=== PATIENT | female | born 1965 | race Caucasian/White ===

== ENCOUNTER → 2016-10-28 | Outpatient (CLI) | payer OTHER | LOC: FIMAGING 09:59 | PROVIDERS: ATTEND Internal Medicine | DX: Z12.31 Encounter for screening mammogram for malignant neoplasm of breast (principal) | CPT/HCPCS: G0202 ==

== ENCOUNTER → 2017-11-01 | Outpatient (CLI) | payer OTHER | LOC: FIMAGING 08:20 | PROVIDERS: ATTEND Internal Medicine | DX: Z12.31 Encounter for screening mammogram for malignant neoplasm of breast (principal) ==

== ENCOUNTER 2018-03-09 11:00 | Observation (INO) | payer OTHER ==
--- NOTE | 2018-03-09 10:46 | PDANEPAE ---
ANE History of Present Illness SVT ablation ANE Past Medical History - Cardiovascular History Hx Arrhythmias: Yes ANE Review of Systems Review of systems is: negative Review of Systems: - Exercise capacity Exercise capacity: >=4 METS ANE Patient History - Allergies Allergies/Adverse Reactions: No Known Allergies Allergy (Unverified 08/11/12 08:40) - Home Medications Home medications: home medication list seen and reviewed Home Medications: MAGNESIUM [Magnesium Oxide 200 mg] 500 mg PO HS 08/11/12 [Last Taken Unknown] Calcium Carbonate [Oyster Shell Calcium 500 mg (*)] 500 mg PO HS 03/04/18 [Last Taken Unknown] Cholecalciferol Vit D3 [Vitamin D3 (*)] 5,000 units PO DAILY 03/04/18 [Last Taken Unknown] Herbals/Supplements -Info Only 1 ea PO DAILY 03/04/18 [Last Taken Unknown] Ibuprofen [Motrin (*)] 400 mg PO DAILY PRN 03/04/18 [Last Taken Unknown] Multivitamins [Multivitamin (*)] 1 each PO DAILY 03/04/18 [Last Taken Unknown] buPROPion XL [Wellbutrin Xl] 150 mg PO DAILY 03/04/18 [Last Taken Unknown] - NPO status NPO Status: no food or drink >8 hours - Anes Hx Anes Hx: post operative nausea - Smoking Hx Smoking Status: Former smoker - Family Anes Hx Family Anes Hx: none ANE Labs/Vital Signs - Labs Result Diagrams: 03/09/18 11:23 03/09/18 11:23 - Vital Signs Vital Signs: reviewed preoperatively; see RN documention for details ANE Physical Exam - Airway Neck exam: FROM Mallampati Score: Class 2 Mouth exam: normal dental/mouth exam - Pulmonary Pulmonary: no respiratory distress - Cardiovascular Cardiovascular: regular rate and rhythym - ASA Status ASA Status: II ANE Anesthesia Plan Anesthesia Plan: general endotracheal anesthesia
[2018-03-09] MEDS ORDERED: NS 1,000 ML IV ONE (11:16)
[2018-03-09 11:42] LABS: PLATELET COUNT 340 10^3/uL (150-400)
[2018-03-09 11:53] LABS: INR 1.02 (0.83-1.16); PROTIME(PATIENT) 13.6 SEC (12.0-15.0)
--- NOTE | 2018-03-09 11:53 | PDGENHP ---
History & Physical Chief Complaint: svt Relevant Physical Exam: s1s2 rrr cta ao3 Cardiorespiratory Assessment: for eps possible ablation
[2018-03-09] MEDS ORDERED: ISOPROTERENOL HCL/D5W 0.2 MG/50 ML BAG IV ONE (12:02)
[2018-03-09] MEDS ORDERED: BUPIVACAINE 0.75% 10 ML SDV ONE (12:02)
[2018-03-09] MEDS ORDERED: LIDOCAINE 1% 300 MG/30 ML SDV ONE (12:02)
[2018-03-09] MEDS ORDERED: HEPARIN 10,000 UNIT/10 ML MDV (1,000 UNIT/ML) ONE (12:02)
[2018-03-09] MEDS ORDERED: fentaNYL 100 MCG/2 ML INJ ONE (12:23)
[2018-03-09] MEDS ORDERED: DEXAMETHASONE 4 MG/ML VIAL ONE (12:23)
[2018-03-09] MEDS ORDERED: LIDOCAINE 2% 100 MG/5 ML SYR ONE (12:23)
[2018-03-09] MEDS ORDERED: ONDANSETRON 4 MG/2 ML VIAL ONE (12:23)
[2018-03-09] MEDS ORDERED: PROPOFOL 200 MG/20 ML VIAL ONE ×2 (12:23→12:58)
[2018-03-09] MEDS ORDERED: MIDAZOLAM 2 MG/2 ML VIAL ONE (12:24)
[2018-03-09] MEDS ORDERED: ROCURONIUM 50 MG/5 ML VIAL ONE ×2 (12:25→13:30)
[2018-03-09] MEDS ORDERED: ONDANSETRON 4 MG/2 ML VIAL IVP PRN (14:02)
[2018-03-09] MEDS ORDERED: DEXAMETHASONE 4 MG/ML VIAL IVP PRN (14:02)
[2018-03-09] MEDS ORDERED: HYDROCODONE/APAP 5/325 TAB PO PRN ×2 (14:02→16:46)
[2018-03-09] MEDS ORDERED: oxyCODONE IR 5 MG TAB PO PRN (14:02)
[2018-03-09] MEDS ORDERED: MEPERIDINE 25 MG/0.5 ML AMP IVP PRN (14:02)
[2018-03-09] MEDS ORDERED: PROMETHAZINE HCL 25 MG/ML INJ IVP PRN (14:02)
[2018-03-09] MEDS ORDERED: NALOXONE HCL 0.4 MG/ML INJ IVP PRN (14:02)
[2018-03-09] MEDS ORDERED: fentaNYL 100 MCG/2 ML INJ IVP PRN (14:02)
--- NOTE | 2018-03-09 14:03 | POSTANESTH ---
Post Anesthetic Evaluation Cardiovascular Status: Normal, Stable Respiratory Status: Normal, Stable, Similar to Pre-op Cond. Level of Consciousness/Mental Status: Can Participate in Eval, Mildly Sleepy, Arousable Pain Control: Adequate, Prn Tx Ordered Nausea/Vomiting Control: Adequate, Prn Tx Ordered Complications Possibly Related to Anesthesia: None Noted
[2018-03-09] MEDS ORDERED: SUGAMMADEX SODIUM 200 MG/2 ML VIAL IVP ONE (14:37)
--- NOTE | 2018-03-09 15:16 | EPPROC ---
Electrophysiology Procedure Note: ELECTROPHYSIOLOGIC STUDY AND CATHETER MEDIATED ABLATION OF SLOW/SLOW ( atypical )AV ROYAL REENTRY TACHYCARDIA PROCEDURES PERFORMED: 67306-54 EP evaluation with RA/RV/LA pace/record, with arrhythmia induction 40864-38 EP evaluation with RA/RV pace record, insert/reposition catheter, with arrhythmia induction 63138 Intracardiac catheter ablation, SVT arrhythmogenic focus 19630 3D mapping Fluoroscopy PROCEDURE: Catheters & Anesthesia: The patient arrived in the Electrophysiology Laboratory in the fasting state. The right clavicular region, right groin, and left groin area were prepped and draped in the usual sterile manner. Anesthesiologist Dr Azael Bermudez administered general anesthesia. Appropriate non-invasive blood pressure, pulse oximetry and end-tidal CO2 monitoring was established. All catheters were placed percutaneously using the modified Seldinger technique , and advanced into position under fluoroscopic guidance. One #6 Brazilian hexapolar non-deflectable electrode catheter was inserted into the right atrial appendage via the left femoral vein (2mm spacing; except the proximal ring which was 25cm from the tip used for unipolar recordings). One #7 Brazilian deflectable octapolar electrode catheter was advanced to the His-bundle position via the left femoral vein (2mm spacing). One #7 Brazilian deflectable quadrapolar catheter was advanced to the anteroseptal right ventricle via the right femoral vein. One #7 Brazilian deflectable catheter with 10 pairs of electrodes was placed via the right femoral vein into the coronary sinus. Heparin was given to keep ACT > 200 s. Programmed stimulation was performed from the right atrium, right ventricle and coronary sinus (left atrium). Parahisian pacing demonstrated constant H-A interval with changing V-A intervals and stimulus-A intervals during capture and loss of capture of proximal RBB proving retrograde conduction over AV node. AVNRT was induced easily during infusion of isoproterenol 1 mcg/min. Ventricular extrastimuli delivered during tachycardia without altering antegrade His bundle activation did not advance next atrial potential, indicating that the tachycardia was not utilizing an accessory pathway for retrograde conduction. VA interval was -25 ms. Post entrainment of the tachycardia from the ventricle, there was VAHV response. A #8 Brazilian deflectable quadrapolar electrode catheter (2mm-5mm-2mm spacing) with 4 mm tip electrode and sensor for the 3D mapping Carto system was advanced to the right atrium. 3 D mapping of the inter-atrial septum and coronary sinus was performed and location of the AV node was marked. A Mobi sheath was used. RF applications were delivered to the region between the tricuspid annulus and the coronary sinus ostium, at the level of the upper edge of the coronary sinus ostium. Radiofrequency applications were also delivered along the roof of the proximal coronary sinus. Junctional rhythm occurred during all of the RF applications. Programmed stimulation was continued post ablation at baseline and during graded doses of isoproterenol upto 4mcg/min. Sustained AVNRT was not inducible. There were no echo beats. The catheters were removed. Vascular access sheaths were removed and pursestring suture placed. The patient was transferred to the cardiovascular holding area in stable condition. There were no apparent complications. Results: A. Spontaneous Intervals: Pre ablation SCL 780 ms AH 60 ms 40 ms Post ablation SCL 640 ms AH 60 ms HV 40 ms B. Antegrade AV royal function (decremental pacing) Pre ablation FPERP 340 ms WBB CL 330 ms Post ablation FPERP 340 ms WBB CL 330 ms C. Retrograde AV royal function (decremental pacing) Pre ablation FPERP 360 ms SPERP 340 ms WBB CL 330 ms0 D. Arrhythmias: Sustained slow/slow AVNRT Cycle length 440 ms, AH interval 370 ms, GORDON interval 70 ms VA interval -25 ms CONCLUSIONS 1. Atypical (Slow/slow) AVNRT 2. Successful ablation of the slow AV royal pathway with elimination of 1:1 antegrade conduction over the slow AV royal pathway, all retrograde conduction over the slow AV royal pathway and the inducibility of AVNRT. 3. No complications. Patient Problems: Problems Problem Status Onset Supraventricular tachycardia Acute
[2018-03-09] MEDS ORDERED: HYDROCODONE/APAP 5/325 TAB ONE (16:11)
[2018-03-09] MEDS: IBUPROFEN 200 MG TAB PO PRN (20:53)
[2018-03-10 04:45] LABS: PLATELET COUNT 380 10^3/uL (150-400)
[2018-03-10] MEDS: IBUPROFEN 200 MG TAB PO PRN (08:02)
[2018-03-10] MEDS ORDERED: buPROPion XL 150 MG TAB PO SCH (09:00)
[2018-03-10] MEDS ORDERED: ASPIRIN 81 MG CHEWABLE TAB PO SCH (09:00)
[2018-03-10 09:20] VITALS: BP 124/84
--- NOTE | 2018-03-10 09:45 | ECHO ---
[email or web address] [address] [address] Main: [phone] Fax: Transthoracic Echocardiogram Name: COURT KHAN MR#: [id number] Study Date: 03/10/2018 Study Time: 08:20 AM Date of : 1965 Age: 52 year(s) Height: 170.2 cm (67 in.) Weight: 81.19 kg (179 lb.) BSA: 1.93 m2 Gender: Female Examination: Echo Indication: f/u Post EP study Image Quality: Adequate Contrast: Requested by: James Wick BP: 133 mmHg/83 mmHg Heart Rate: Rhythm: Indication: f/u Post EP study Procedure Staff Sanitation Superintendent: [facility] Reading Physician: Derrick Webb MD Requesting Provider: Conclusions: Normal global systolic LV function. EF is 70 %. Trivial mitral valve regurgitation. Mild aortic valve regurgitation is present. Mild tricuspid regurgitation is present. Right ventricular systolic pressure measures 22mmHg. Measurements: Chambers Valvular Assessment AV/MV Valvular Assessment TV/PV Normal Normal Normal Name Value Range Name Value Range Name Value Range Ao Jesenia (MM): 2.7 cm (2.2 cm-3.7 AV Vmax: 1.46 m/s (1 m/s-1.7 TR Vmax: 2.06 mm/s ( - ) cm) m/s) TR PGmax: 17 mmHg ( - ) IVSd (2D): 0.9 cm (0.6 cm-1.1 AV maxP mmHg ( - ) syst. PAP: 22 mmHg ( - ) cm) LVOT Vmax: 1.23 m/s (0.7 m/s-1.1 PV Vmax: 0.79 m/s (0.6 m/s-0.9 LVDd (2D): 3.8 cm (3.9 cm-5.3 m/s) m/s) cm) JENNIFER (Vmax): 2.6 cm2 ( - ) PV PGmax: 3 mmHg ( - ) LVDs (2D): 2.5 cm (2.1 cm-4 AR (PHT): 699 ms ( - ) cm) MV E Vmax: 0.66 m/s ( - ) LVPWd (2D): 0.9 cm ( - ) MV A Vmax: 0.43 m/s ( - ) LVOTd 2.0 cm 2.0 cm mm MV E/A: 1.53 ( - ) LVEF (BP): 70 % (>=55 %) RVDd(2D): 3.3 cm (1.9 cm-3.8 cmmm) Continued Measurements: Chambers Valvular Assessment AV/MV Valvular Assessment TV/PV Name Value Name Value Name Value LADs: 3.2 cm MV DecTime: 246 m/s CVP (est.): 5 mmHg Patient: COURT KHAN Study Date: 03/10/2018 Page 1 of 2 08:20 AM LADs Lon.1 cm MV E' Septal: 0.09 m/s LA Area: 17.7 cm2 MV E/E' Septal: 7.60 LA Volume: 52 ml MV E/E' Lateral: 6.10 LA Volume Index: 26.9 ml/m2 AR Vmax: 3.15 cm/s TAPSE: 2.1 cm RA Area: 12.7 cm2 Additional Vessels Name Value Ao Ascendin.6 cm Findings: Left Ventricle: Normal size left ventricle. No LV hypertrophy. Normal global systolic LV function. EF is 70 %. No regional wall motion abnormality. Normal diastolic LV function. Right Ventricle: Normal size right ventricle. Normal RV function. Left Atrium: The left atrium is normal in size. Right Atrium: The right atrium is normal in size. Mitral Valve: The mitral valve is normal in appearance and function. Trivial mitral valve regurgitation. No mitral stenosis is present. Aortic Valve: The aortic valve is tri-leaflet and functions normally. Mild aortic valve regurgitation is present. No aortic valve stenosis is present. Tricuspid Valve: The tricuspid valve appears normal. Mild tricuspid regurgitation is present. Right ventricular systolic pressure measures 22mmHg. The pulmonary artery pressure is normal. Pulmonic Valve: Pulmonary valve not well visualized. Trivial to mild pulmonic valve regurgitation. Aorta: Normal size aortic root measuring 2.7 cm. Normal size ascending aorta measuring 3.6 cm. IVC: No foreign body in inferior vena cava. Normal size and course of the IVC. Pericardium: No pericardial effusion. (No Signature Object) Patient: COURT KHAN Study Date: 03/10/2018 Page 2 of 2 08:20 AM [id number]
--- NOTE | 2018-03-10 11:40 | GDS ---
ADMISSION DIAGNOSES: 1. Supraventricular tachycardia. 2. Planned supraventricular tachycardia ablation. DISCHARGE DIAGNOSES: 1. 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 HOSPITAL COURSE: This patient who is well known to Dr. James Wick. She was admitted yesterday 03/09/2018 and underwent successful ablation of atypical AVNRT. Patient did well overnight without issue. Pursestring sutures removed this morning, groins are soft and nontender bilaterally. Patient is stable for discharge. CONCLUSIONS: 1. Atypical (slow/slow) AVNRT. 2. Successful ablation of the slow AV royal pathway with elimination of 1:1 antegrade conduction of the slow AV royal pathway, all of retrograde conduction over the slow AV royal pathway and inducibility of AVNRT. 3. No complications. PHYSICAL EXAMINATION: VITAL SIGNS: On day of discharge patient's blood pressure is 128/84, heart rate is 64, oxygen saturation 96% on room air, temperature 36.9 degrees Celsius. Telemetry shows a normal sinus rhythm. HEART : Regular rate. No murmurs. Regular rhythm. LUNGS: Sounds are clear to auscultation. No wheezes, rales, or rhonchi. EXTREMITIES: Groin sites are intact post removal of purse string suture. No peripheral edema. Peripheral pulses are 2+ bilaterally. DISCHARGE PLANS: 1. Patient will be discharged home on aspirin 81 mg. 2. Education provided regarding groin precautions for 10 days. Advised not to lift greater than 10 pounds during that time period. 3. Patient was advised to walk around every 45 minutes for 45 days. 4. Reviewed recommendation to avoid submerged bathing for 10 days. Patient is okay to shower at this time. 5. Patient will follow up in clinic in 4 weeks. 6. Stable for discharge at this time. /[id number]/MODL MTDD
--- NOTE | 2018-03-13 14:50 | CPEKG ---
Test Reason : OPEN Blood Pressure : / mmHG Vent. Rate : 069 BPM Atrial Rate : 069 BPM P-R Int : 142 ms QRS Dur : 081 ms QT Int : 415 ms P-R-T Axes : 047 070 057 degrees QTc Int : 445 ms Sinus rhythm Confirmed by Enrique Cutler ([id number]) on 03/13/2018 2:50:35 PM Referred By: Confirmed By:Enrique Cutler
--- NOTE | 2018-03-13 14:50 | CPEKG ---
Test Reason : OPEN Blood Pressure : / mmHG Vent. Rate : 074 BPM Atrial Rate : 074 BPM P-R Int : 145 ms QRS Dur : 088 ms QT Int : 404 ms P-R-T Axes : 058 061 065 degrees QTc Int : 449 ms Sinus rhythm Confirmed by Enrique Cutlre ([id number]) on 03/13/2018 2:50:16 PM Referred By: Confirmed By:Enrique Cutler
--- NOTE | 2018-03-13 14:51 | CPEKG ---
Test Reason : OPEN Blood Pressure : / mmHG Vent. Rate : 056 BPM Atrial Rate : 056 BPM P-R Int : 145 ms QRS Dur : 089 ms QT Int : 436 ms P-R-T Axes : 050 074 084 degrees QTc Int : 421 ms Sinus rhythm Minimal ST depression, lateral leads Confirmed by Enrique Cutler ([id number]) on 03/13/2018 2:50:54 PM Referred By: Confirmed By:Enrique Cutler
== END 2018-03-10 11:56 | disposition home or self-care (01) ==
LOC: FCATH 11:00 → F2W 11:02 → UNDOADMOB 11:02 → EDSTATUS 13:00 → F2W 14:15
PROVIDERS: ADMIT Internal Medicine Cardiovascular Disease; ATTEND Internal Medicine Cardiovascular Disease
DX: I47.1 Supraventricular tachycardia (principal)
CPT/HCPCS: 93005; 93306; 93613; 93621; 93623; 93653; C1730; C1732; G0378; C1731; C1766; J1100; J1644; J2001; J2250; J2405; J2704; J3010

== ENCOUNTER → 2018-11-02 | Outpatient (CLI) | payer OTHER | LOC: FIMAGING 07:39 ==